=== PATIENT | male | born 1930 | race Caucasian/White ===

== ENCOUNTER 2019-02-03 17:06 | Inpatient (IN) ==
[2019-02-05] MEDS ORDERED: Nitroglycerin 0.4 MG TAB.SUBL SL PRN (14:14)
[2019-02-05] MEDS: traMADol 50 MG TABLET PO SCH ×2 (16:06→20:03)
[2019-02-05] MEDS: *HR* OxyCODONE/APAP 5/325 TABLET PO PRN (16:07)
[2019-02-05] MEDS: Mirtazapine 15 MG TABLET PO SCH (20:03)
[2019-02-05] MEDS ORDERED: NON-FORMULARY MEDICATION 1 EACH EACH (Omega-3 Acid Ethyl Esters [Lovaza] 2 GM) PO SCH (21:00)
[2019-02-06 05:46] LABS: Basophils % 0.3 %; Eosinophils # 0.7 K/mcL (0.0-0.6); Eosinophils % 7.5 %; Hematocrit 33.1 % (37.5-50.1); Hemoglobin 10.8 g/dL (12.9-16.9); Immature Granulocytes % 0.8 % (0-4); Lymphocytes # 0.6 K/mcL (0.6-4.6); Lymphocytes % 6.9 %; Mean Corpuscular HGB Conc 32.6 g/dL (31.6-35.5); Mean Corpuscular Hemoglobin 30.3 pg (28.0-33.3); Mean Platelet Volume 9.7 fL (9.4-12.4); Monocytes # 1.2 K/mcL (0.0-1.3); Monocytes % 13.1 %; Neutrophils # 6.6 K/mcL (1.6-8.9); Platelet Count 234 K/mcL (140-400); Red Blood Count 3.56 M/mcL (4.19-5.50); Red Cell Distribution Width 14.4 % (11.5-14.5); Segmented Neutrophils % 71.4 %
[2019-02-06 06:06] LABS: Alanine Aminotransferase 22 Units/L (7-52); Albumin 3.2 g/dL (3.5-5.7); Albumin/Globulin Ratio 1.4 (1.1-2.2); Alkaline Phosphatase 108 Units/L (34-104); Aspartate Amino Transferase 22 Units/L (13-39); BUN/Creatinine Ratio 18 (6-26); Bilirubin,Total 1.7 mg/dL (0.3-1.0); Blood Urea Nitrogen 19 mg/dL (8-23); Calcium 9.1 mg/dL (8.6-10.3); Carbon Dioxide 29 mEq/L (23-29); Chloride 102 mEq/L (98-107); Globulin 2.3 g/dL (2.4-3.5); Glucose 107 mg/dL (70-105); Osmolality,Calculated 291 (280-300); Potassium 3.3 mEq/L (3.5-5.1); Sodium 139 mEq/L (136-145); Total Protein 5.5 g/dL (6.4-8.9); eGFR For Non-African Americans > 60 (> 60)
[2019-02-06 06:35] LABS: Thyroid Stimulating Hormone 7.362 mcIU/mL (0.340-5.600)
[2019-02-06 08:56] LABS: % Iron Saturation 18 % (20-55); Iron 47 mcg/dL (65-175); Transferrin 184 mg/dL (203-362)
[2019-02-06] MEDS ORDERED: NON-FORMULARY MEDICATION 1 EACH EACH (Vit C/E/Zn/Coppr/Lutein/Zeaxan [Preservision Areds 2 PO SCH (09:00)
[2019-02-06] MEDS ORDERED: Lisinopril 20 MG TABLET PO SCH (09:00)
[2019-02-06] MEDS: Cholecalciferol (D-3) 1,000 UNIT TABLET PO SCH (09:10)
[2019-02-06] MEDS: Multivit/Ca/Min/Fe/FA 1 TAB TABLET PO SCH (09:11)
[2019-02-06] MEDS: Isosorbide MONOnitrate (24 HR) 30 MG TAB.ER.24H PO SCH (09:11)
[2019-02-06] MEDS: Aspirin 81 MG TAB.CHEW PO SCH (09:11)
[2019-02-06] MEDS: traMADol 50 MG TABLET PO SCH ×3 (09:12→21:00)
[2019-02-06 09:13] LABS: Ferritin 263 ng/mL (20-250)
[2019-02-06 09:29] LABS: Folate > 22.3 ng/mL (3.0-16.0); Vitamin B12 996 pg/mL (250-1100)
[2019-02-06] MEDS: *HR* OxyCODONE/APAP 5/325 TABLET PO PRN ×2 (12:33→21:08)
--- NOTE | 2019-02-06 12:57 | Internal Med History&Physical ---
Date of Encounter: 02/06/19 Time of Encounter: 12:30 Assessment and Plan (1) S/P laparoscopic cholecystectomy Current visit: No Status: Acute Follow up with surgeon 02/17/2019. (2) Hypokalemia Current visit: Yes Status: Acute Potassium level 3.3 today. Supplemental potassium will be ordered. (3) Hypertension Current visit: No Status: Chronic Continue Coreg and Prinzide Qualifiers: Hypertension type: essential hypertension Qualified Code(s): I10 - Essent ial (primary) hypertension (4) Postoperative anemia due to acute blood loss Current visit: No Status: Acute Anemia testing showed iron 47, transferrin saturation 18%, transferrin 184, ferritin 263, B12 996, and folate> 22.3. Ferrous sulfate with ascorbic acid will be started in a.m. (5) Elevated TSH Current visit: Yes Status: Acute TSH elevated at 7.362 today. Start low-dose Synthroid. Internal Medicine - H&P: HPI Chief complaint: Abdominal pain Admitted From: Direct Admit Plans for Post Hospital Care: Home History of present illness: Mr. Quesada is a 88 year old male who was hospitalized at [facility] January 28 after presenting with abdominal pain. He was found to have choledocholithiasis with cholangitis and pneumonia. He had ERCP with stent for stone removal which was followed by laparoscopic cholecystectomy. He completed a course of antibiotics. He wished to be discharged home rather than swing bed/SNF placement. Upon returning home he had 2 episodes of falling and felt very weak. He was directly admitted to [facility] swing bed for ongoing care needs. GI history is negative for other known disorders of liver or exocrine pancreas. He states he still has some abdominal discomfort. Past Med Surg Social Fam HX - Past Medical History Medical history: arthritis, coronary artery disease, hypertension Additional medical history: VERY [place], Psychiatric history: depression - Past Surgical History Surgical History: vascular surgery Additional surgical history: AAA(2008). spastic bowel. stent placement. choledocholithiasis - Social History Smoking Status: Former smoker Smokeless Tobacco Status: No Alcohol use: none Drug use: none - Family History Mother Living Status: Father Living Status: Internal Medicine - H&P: Meds Lovastatin 40 mg PO DAILY 12/23/16 [History] Mirtazapine [Remeron] 15 mg PO HS 12/23/16 [History] Multivits,Ca,Min/Iron/FA/Lycop [Centrum Men's Tablet] 1 tab PO DAILY 12/23/16 [History] Aspirin 81 mg PO DAILY #30 05/24/17 [Rx] Omeprazole [PriLOSEC] 20 mg PO BID 07/15/17 [History] Isosorbide MONOnitrate (24 HR) [Imdur] 30 mg PO DAILY 12/17/17 [History] Nitroglycerin 0.4 mg SL Q5MIN 12/17/17 [History] Carvedilol 6.25 mg PO BID 02/21/18 [History] Cholecalciferol (D-3) [Vitamin D] 2,000 unit PO DAILY 02/21/18 [History] Albuterol Sulfate [Albuterol Inhaler] 2 puff IH Q4H PRN 01/28/19 [History] [place]-3 Acid Ethyl Esters [Lovaza] 2 gm PO BID 01/28/19 [History] Tramadol HCl [Ultram] 50 mg PO TID 01/28/19 [History] Vit C/E/Zn/Coppr/Lutein/Zeaxan [Preservision Areds 2 Softgel] 2 cap PO DAILY 01/28/19 [History] Lisinopril-HCTZ 20-12.5 [Prinzide 20-12.5] 2 tab PO DAILY 01/29/19 [History] OxyCODONE/APAP 5/325 [Percocet 5/325 MG] 1 each PO Q6HR PRN 7 Days #28 tablet 02/04/19 [Rx] Allergy/AdvReac Type Severity Reaction Status Date / Time No Known Allergies Allergy Verified 02/03/19 19:37 All Systems PM: A 10-system review of systems was performed and is negative for pertinent findings except as documented above in the HPI. Review of systems: Gen.: His weight has increased from 77.111 kg in April 2015 to present weight of 81.647 kg Cardiovascular: He has history of hypertension but no OR heart failure angina DVT or pulmonary embolus. He had abdominal aortic aneurysm with endograft repair 2004. Respiratory: He smoked from age [age] never exceeding 1 pack per day. He reports PFTs many years ago were unremarkable. He does not use home oxygen and has not been tested for sleep apnea GI: As per history of present illness : He had a kidney stone remotely. He has chronic kidney disease stage II but does not follow with a safety teacher. He was diagnosed with a benign kidney tumor several years ago which has remained stable. He denies other kidney bladder prostate disorders Neurologic: He denies large distribution strokes or seizures Endocrine: He has hyperlipidemia but no known diabetes or thyroid disease Hematology/oncology: He denies blood disorders or cancers. He had thrombocytopenia during his [facility] stay which resolved by time of discharge. He was unaware he had anemia. Psychiatric: He denies anxiety depression or other mental health issues [place] skeletal: He denies arthritis gout or other bone joint or muscle disorders. - Constitutional Vitals: Temp Pulse Resp BP Pulse Ox 97.7 F 84 18 163/94 90 02/06/19 07:07 02/06/19 07:07 02/06/19 07:07 02/06/19 07:07 02/06/19 07:07 Exam: Gen.: He is a well-developed well-nourished male lying in bed who appears in minimal distress at rest HEENT: Head is atraumatic and normocephalic. Eyes: EOMI. There is no scleral icterus. Mouth: Mucosa is moist. Neck: Supple and nontender. There is no thyromegaly or adenopathy noted. Heart: Regular without murmurs gallops or ectopics Lungs: No wheezes or crackles are heard. Abdomen: He has bandages covering surgical incision sites in his anterior mid abdomen and right upper quadrant area. There is a large area of ecchymosis in his anterolateral lower abdominal area. There is slight tenderness to palpation. Extremities: There is no cyanosis or clubbing noted. He has trace to 1+ edema of the dorsum of the feet and lower legs bilaterally. Neurologic: Mental status: He is talkative and a good historian. Cranial nerves: Smile is symmetric. Forehead wrinkles bilaterally. Tongue protrudes midline. EOMI. He is hard of hearing. Motor: There is no pronator drift. Cerebellar: Finger to nose is intact bilaterally. Skin: Warm and dry Internal Med - H&P Results - Labs CBC & Chem 7: 02/06/19 05:38 02/06/19 05:38 Labs: Short CBC 02/06/19 Range/Units 05:38 WBC 9.3 (4.3-11.1) K/mcL Hgb 10.8 L (12.9-16.9) g/dL Hct 33.1 L (37.5-50.1) % Plt Count 234 (140-400) K/mcL Neutrophils # 6.6 (1.6-8.9) K/mcL BMP 02/06/19 05:38 Sodium 139 Potassium 3.3 L Chloride 102 Carbon Dioxide 29 BUN 19 Creatinine 1.06 Glucose 107 H Calcium 9.1 Liver Function 02/06/19 Range/Units 05:38 Total Bilirubin 1.7 H (0.3-1.0) mg/dL AST 22 (13-39) Units/L ALT 22 (7-52) Units/L Alkaline Phosphatase 108 H (34-104) Units/L Albumin 3.2 L (3.5-5.7) g/dL
[2019-02-06] MEDS: Mirtazapine 15 MG TABLET PO SCH (20:55)
[2019-02-07] MEDS: Ascorbic Acid 500 MG TABLET PO SCH ×2 (06:35→10:07)
[2019-02-07] MEDS: traMADol 50 MG TABLET PO SCH ×3 (09:05→20:15)
[2019-02-07] MEDS: Multivit/Ca/Min/Fe/FA 1 TAB TABLET PO SCH ×2 (10:01→10:09)
[2019-02-07] MEDS: Isosorbide MONOnitrate (24 HR) 30 MG TAB.ER.24H PO SCH (10:01)
[2019-02-07] MEDS: Cholecalciferol (D-3) 1,000 UNIT TABLET PO SCH (10:02)
[2019-02-07] MEDS: Aspirin 81 MG TAB.CHEW PO SCH (10:02)
--- NOTE | 2019-02-07 14:34 | Internal Med Progress Note ---
Date of Encounter: 02/07/19 Time of Encounter: 14:25 - Assessment and plan (1) S/P laparoscopic cholecystectomy Current Visit: No Status: Acute Assessment and plan: February 07. Follow-up with surgeon 02/17/2019. (2) Hypokalemia Current Visit: Yes Status: Acute Assessment and plan: February 17. Continue supplemental potassium. Recheck labs in a.m. (3) Hypertension Current Visit: No Status: Chronic Assessment and plan: February 07. Continue Coreg and Prinzide. Qualifiers: Hypertension type: essential hypertension Qualified Code(s): I10 - Essential (primary) hypertension (4) Postoperative anemia due to acute blood loss Current Visit: No Status: Acute Assessment and plan: February 07. Anemia testing 02/06/2019 showed iron 47, transferrin saturation 18%, transferrin 184, ferritin 263, B12 996, and folate> 22.3. Continue ferrous sulfate with ascorbic acid. (5) Elevated TSH Current Visit: Yes Status: Acute Assessment and plan: February 07. TSH slightly elevated at 7.362 on 02/06/2019. Continue Synthroid. - Subjective Interval history: February 07. He has no new complaints and feels better. - Constitutional Vitals: Temp Pulse Resp BP Pulse Ox 98.5 F 64 16 144/71 96 02/07/19 06:56 02/07/19 06:56 02/07/19 06:56 02/07/19 06:56 02/07/19 06:56 Exam: He is resting comfortably in bed and appears in no acute distress. His affect is bright and cheerful. Abdomen is soft and nontender. Extremities show no edema. I reviewed his medications and lab results. Internal Medicine: Result - Labs CBC & Chem 7: 02/06/19 05:38 02/06/19 05:38 Consult Discharge Plan - Plan Referrals: NONE,PCP [Primary Care Provider] - 1 week
[2019-02-07] MEDS: *HR* OxyCODONE/APAP 5/325 TABLET PO PRN ×2 (17:15→23:27)
[2019-02-07] MEDS: Mirtazapine 15 MG TABLET PO SCH (20:14)
[2019-02-08 07:00] LABS: Basophils # 0.1 K/mcL (0.0-0.2); Basophils % 0.7 %; Eosinophils # 0.4 K/mcL (0.0-0.6); Eosinophils % 5.6 %; Hematocrit 34.7 % (37.5-50.1); Immature Granulocytes % 0.7 % (0-4); Lymphocytes # 0.7 K/mcL (0.6-4.6); Lymphocytes % 9.5 %; Mean Corpuscular HGB Conc 31.7 g/dL (31.6-35.5); Mean Corpuscular Hemoglobin 30.2 pg (28.0-33.3); Mean Corpuscular Volume 95.3 fL (83.0-100.0); Mean Platelet Volume 9.9 fL (9.4-12.4); Monocytes # 1.1 K/mcL (0.0-1.3); Monocytes % 14.9 %; Neutrophils # 5.3 K/mcL (1.6-8.9); Platelet Count 264 K/mcL (140-400); Red Blood Count 3.64 M/mcL (4.19-5.50); Red Cell Distribution Width 14.1 % (11.5-14.5); Segmented Neutrophils % 68.6 %
[2019-02-08 07:23] LABS: Alanine Aminotransferase 21 Units/L (7-52); Albumin 3.4 g/dL (3.5-5.7); Albumin/Globulin Ratio 1.4 (1.1-2.2); Alkaline Phosphatase 109 Units/L (34-104); Aspartate Amino Transferase 22 Units/L (13-39); BUN/Creatinine Ratio 18 (6-26); Bilirubin,Total 1.8 mg/dL (0.3-1.0); Blood Urea Nitrogen 19 mg/dL (8-23); Calcium 9.3 mg/dL (8.6-10.3); Carbon Dioxide 34 mEq/L (23-29); Chloride 100 mEq/L (98-107); Globulin 2.4 g/dL (2.4-3.5); Glucose 104 mg/dL (70-105); Osmolality,Calculated 293 (280-300); Potassium 3.5 mEq/L (3.5-5.1); Sodium 140 mEq/L (136-145); Total Protein 5.8 g/dL (6.4-8.9); eGFR For Non-African Americans > 60 (> 60)
[2019-02-08] MEDS: *HR* OxyCODONE/APAP 5/325 TABLET PO PRN ×2 (07:57→18:11)
[2019-02-08] MEDS: Aspirin 81 MG TAB.CHEW PO SCH (10:10)
[2019-02-08] MEDS: Isosorbide MONOnitrate (24 HR) 30 MG TAB.ER.24H PO SCH (10:10)
[2019-02-08] MEDS: Cholecalciferol (D-3) 1,000 UNIT TABLET PO SCH (10:10)
[2019-02-08] MEDS: traMADol 50 MG TABLET PO SCH ×3 (10:11→21:19)
[2019-02-08] MEDS: Ascorbic Acid 500 MG TABLET PO SCH (12:10)
[2019-02-08] MEDS: Multivit/Ca/Min/Fe/FA 1 TAB TABLET PO SCH (12:10)
[2019-02-08] MEDS: MOM Conc 10 ML UD.LIQ PO SCH (16:27)
[2019-02-08] MEDS: Mirtazapine 15 MG TABLET PO SCH (21:19)
[2019-02-09] MEDS: *HR* OxyCODONE/APAP 5/325 TABLET PO PRN (06:24)
[2019-02-09] MEDS: Multivit/Ca/Min/Fe/FA 1 TAB TABLET PO SCH (07:52)
[2019-02-09] MEDS: traMADol 50 MG TABLET PO SCH ×3 (07:54→21:42)
[2019-02-09] MEDS: Cholecalciferol (D-3) 1,000 UNIT TABLET PO SCH (07:55)
[2019-02-09] MEDS: Aspirin 81 MG TAB.CHEW PO SCH (07:55)
[2019-02-09] MEDS: Ascorbic Acid 500 MG TABLET PO SCH (07:55)
[2019-02-09] MEDS: Isosorbide MONOnitrate (24 HR) 30 MG TAB.ER.24H PO SCH (07:55)
--- NOTE | 2019-02-09 10:53 | Internal Med Progress Note ---
Date of Encounter: 02/09/19 Time of Encounter: 10:25 - Assessment and plan (1) S/P laparoscopic cholecystectomy Current Visit: No Status: Acute Assessment and plan: February 07. Follow-up with surgeon 02/17/2019. (2) Hypokalemia Current Visit: Yes Status: Acute Assessment and plan: February 07. Continue supplemental potassium. Recheck labs in a.m. February 09. Potassium normalized to 3.5 yesterday. Continue potassium supplementation and monitor labs. (3) Hypertension Current Visit: No Status: Chronic Assessment and plan: February 07. Continue Coreg and Prinzide. Qualifiers: Hypertension type: essential hypertension Qualified Code(s): I10 - Essential (primary) hypertension (4) Postoperative anemia due to acute blood loss Current Visit: No Status: Acute Assessment and plan: February 07. Anemia testing 02/06/2019 showed iron 47, transferrin saturation 18%, transferrin 184, ferritin 263, B12 996, and folate> 22.3. Continue ferrous sulfate with ascorbic acid. February 09. Hemoglobin stable at 11.0. Continue to monitor periodically. (5) Elevated TSH Current Visit: Yes Status: Acute Assessment and plan: February 07. TSH slightly elevated at 7.362 on 02/06/2019. Continue Synthroid. - Subjective Interval history: February 07. He has no new complaints and feels better. February 09. He has no new complaints and feels better. His abdominal pain has lessened. - Constitutional Vitals: Temp Pulse Resp BP Pulse Ox 98.4 F 69 16 97/58 96 02/09/19 08:15 02/09/19 08:15 02/09/19 08:15 02/09/19 08:15 02/09/19 08:15 Exam: He is resting comfortably in bed and appears in no acute distress. His abdomen is soft and nontender. Extremities show no edema. I reviewed his medications and lab results. Internal Medicine: Result - Labs CBC & Chem 7: 02/08/19 06:35 02/08/19 06:35 Consult Discharge Plan - Plan Referrals: NONE,PCP [Primary Care Provider] - 1 week
[2019-02-09] MEDS: Mirtazapine 15 MG TABLET PO SCH (21:42)
[2019-02-10] MEDS: Aspirin 81 MG TAB.CHEW PO SCH (07:54)
[2019-02-10] MEDS: Multivit/Ca/Min/Fe/FA 1 TAB TABLET PO SCH (07:54)
[2019-02-10] MEDS: Cholecalciferol (D-3) 1,000 UNIT TABLET PO SCH (07:54)
[2019-02-10] MEDS: Isosorbide MONOnitrate (24 HR) 30 MG TAB.ER.24H PO SCH (07:55)
[2019-02-10] MEDS: traMADol 50 MG TABLET PO SCH ×3 (07:55→19:55)
[2019-02-10] MEDS: Ascorbic Acid 500 MG TABLET PO SCH (07:55)
[2019-02-10] MEDS: MOM Conc 10 ML UD.LIQ PO SCH (15:54)
[2019-02-10] MEDS: Mirtazapine 15 MG TABLET PO SCH (19:56)
[2019-02-11] MEDS: Isosorbide MONOnitrate (24 HR) 30 MG TAB.ER.24H PO SCH (08:26)
[2019-02-11] MEDS: Ascorbic Acid 500 MG TABLET PO SCH (08:26)
[2019-02-11] MEDS: Multivit/Ca/Min/Fe/FA 1 TAB TABLET PO SCH (08:26)
[2019-02-11] MEDS: traMADol 50 MG TABLET PO SCH ×3 (08:27→20:05)
[2019-02-11] MEDS: Cholecalciferol (D-3) 1,000 UNIT TABLET PO SCH (08:28)
[2019-02-11] MEDS: Aspirin 81 MG TAB.CHEW PO SCH (08:28)
[2019-02-11] MEDS: *HR* OxyCODONE/APAP 5/325 TABLET PO PRN (08:33)
--- NOTE | 2019-02-11 15:14 | Internal Med Progress Note ---
Date of Encounter: 02/11/19 Time of Encounter: 15:07 - Assessment and plan (1) S/P laparoscopic cholecystectomy Current Visit: No Status: Acute Assessment and plan: February 07. Follow-up with surgeon 02/17/2019. (2) Hypokalemia Current Visit: Yes Status: Acute Assessment and plan: February 07. Continue supplemental potassium. Recheck labs in a.m. February 09. Potassium normalized to 3.5 yesterday. Continue potassium supplementation and monitor labs. (3) Hypertension Current Visit: No Status: Chronic Assessment and plan: February 07. Continue Coreg and Prinzide. Qualifiers: Hypertension type: essential hypertension Qualified Code(s): I10 - Essential (primary) hypertension (4) Postoperative anemia due to acute blood loss Current Visit: No Status: Acute Assessment and plan: February 07. Anemia testing 02/06/2019 showed iron 47, transferrin saturation 18%, transferrin 184, ferritin 263, B12 996, and folate> 22.3. Continue ferrous sulfate with ascorbic acid. February 09. Hemoglobin stable at 11.0. Continue to monitor periodically. (5) Elevated TSH Current Visit: Yes Status: Acute Assessment and plan: February 07. TSH slightly elevated at 7.362 on 02/06/2019. Continue Synthroid. - Subjective Interval history: February 07. He has no new complaints and feels better. February 09. He has no new complaints and feels better. His abdominal pain has lessened. February 11. He has no new complaints. He reports his abdomen feels distended occasionally. He has adequate bowel movements. He does not feel depressed. - Constitutional Vitals: Temp Pulse Resp BP Pulse Ox 98.2 F 61 18 138/59 95 02/11/19 06:09 02/11/19 06:09 02/11/19 06:09 02/11/19 06:09 02/11/19 08:41 Exam: He is resting comfortably in bed and appears in no acute distress. His affect is overall cheerful. Extremities show no edema. Ecchymosis is gradually resolving in his abdomen/flank area. I reviewed his medications and lab results. Internal Medicine: Result - Labs CBC & Chem 7: 02/08/19 06:35 02/08/19 06:35 Consult Discharge Plan - Plan Referrals: NONE,PCP [Primary Care Provider] - 1 week
[2019-02-11] MEDS: Mirtazapine 15 MG TABLET PO SCH (20:05)
[2019-02-12] MEDS: Isosorbide MONOnitrate (24 HR) 30 MG TAB.ER.24H PO SCH (09:17)
[2019-02-12] MEDS: Cholecalciferol (D-3) 1,000 UNIT TABLET PO SCH (09:17)
[2019-02-12] MEDS: Aspirin 81 MG TAB.CHEW PO SCH (09:17)
[2019-02-12] MEDS: Ascorbic Acid 500 MG TABLET PO SCH (09:18)
[2019-02-12] MEDS: Multivit/Ca/Min/Fe/FA 1 TAB TABLET PO SCH (09:18)
[2019-02-12] MEDS: traMADol 50 MG TABLET PO SCH ×3 (09:18→20:14)
[2019-02-12] MEDS: MOM Conc 10 ML UD.LIQ PO SCH (15:12)
[2019-02-12] MEDS: *HR* OxyCODONE/APAP 5/325 TABLET PO PRN (15:12)
[2019-02-12] MEDS: Mirtazapine 15 MG TABLET PO SCH (20:14)
--- NOTE | 2019-02-13 09:55 | Internal Med Progress Note ---
Date of Encounter: 02/13/19 Time of Encounter: 09:45 - Assessment and plan (1) S/P laparoscopic cholecystectomy Current Visit: No Status: Acute Assessment and plan: February 07. Follow-up with surgeon 02/17/2019. (2) Hypokalemia Current Visit: Yes Status: Acute Assessment and plan: February 07. Continue supplemental potassium. Recheck labs in a.m. February 09. Potassium normalized to 3.5 yesterday. Continue potassium supplementation and monitor labs. February 13. Recheck labs in a.m. (3) Hypertension Current Visit: No Status: Chronic Assessment and plan: February 07. Continue Coreg and Prinzide. Qualifiers: Hypertension type: essential hypertension Qualified Code(s): I10 - Esse ntial (primary) hypertension (4) Postoperative anemia due to acute blood loss Current Visit: No Status: Acute Assessment and plan: February 07. Anemia testing 02/06/2019 showed iron 47, transferrin saturation 18%, transferrin 184, ferritin 263, B12 996, and folate> 22.3. Continue ferrous sulfate with ascorbic acid. February 09. Hemoglobin stable at 11.0. Continue to monitor periodically. (5) Elevated TSH Current Visit: Yes Status: Acute Assessment and plan: February 07. TSH slightly elevated at 7.362 on 02/06/2019. Continue Synthroid. - Subjective Interval history: February 07. He has no new complaints and feels better. February 09. He has no new complaints and feels better. His abdominal pain has lessened. February 11. He has no new complaints. He reports his abdomen feels distended occasionally. He has adequate bowel movements. He does not feel depressed. February 13. He has no new complaints. - Constitutional Vitals: Temp Pulse Resp BP Pulse Ox 98.0 F 63 16 131/64 93 02/13/19 06:01 02/13/19 06:01 02/13/19 06:01 02/13/19 06:01 02/13/19 08:45 Exam: He is resting comfortably on the side of bed and appears in no acute distress. His affect is cheerful. His flank ecchymosis shows expected evolutionary progression. I reviewed his medications and lab results. Internal Medicine: Result - Labs CBC & Chem 7: 02/08/19 06:35 02/08/19 06:35 Consult Discharge Plan - Plan Referrals: NONE,PCP [Primary Care Provider] - 1 week
[2019-02-13] MEDS: Cholecalciferol (D-3) 1,000 UNIT TABLET PO SCH (10:23)
[2019-02-13] MEDS: Multivit/Ca/Min/Fe/FA 1 TAB TABLET PO SCH (10:23)
[2019-02-13] MEDS: Isosorbide MONOnitrate (24 HR) 30 MG TAB.ER.24H PO SCH (10:23)
[2019-02-13] MEDS: Aspirin 81 MG TAB.CHEW PO SCH (10:24)
[2019-02-13] MEDS: Ascorbic Acid 500 MG TABLET PO SCH (10:24)
[2019-02-13] MEDS: traMADol 50 MG TABLET PO SCH ×3 (10:24→21:54)
[2019-02-13] MEDS: *HR* OxyCODONE/APAP 5/325 TABLET PO PRN (20:09)
[2019-02-13] MEDS: Mirtazapine 15 MG TABLET PO SCH (20:10)
[2019-02-14] MEDS: Isosorbide MONOnitrate (24 HR) 30 MG TAB.ER.24H PO SCH (07:47)
[2019-02-14] MEDS: traMADol 50 MG TABLET PO SCH ×3 (07:47→21:33)
[2019-02-14] MEDS: Aspirin 81 MG TAB.CHEW PO SCH (07:47)
[2019-02-14] MEDS: Multivit/Ca/Min/Fe/FA 1 TAB TABLET PO SCH (09:00)
[2019-02-14] MEDS: Cholecalciferol (D-3) 1,000 UNIT TABLET PO SCH (09:00)
[2019-02-14] MEDS: *HR* OxyCODONE/APAP 5/325 TABLET PO PRN (09:00)
[2019-02-14] MEDS: Ascorbic Acid 500 MG TABLET PO SCH (09:00)
[2019-02-14] MEDS: MOM Conc 10 ML UD.LIQ PO SCH (15:20)
[2019-02-14] MEDS: Mirtazapine 15 MG TABLET PO SCH (21:33)
[2019-02-15] MEDS: Cholecalciferol (D-3) 1,000 UNIT TABLET PO SCH (08:12)
[2019-02-15] MEDS: Isosorbide MONOnitrate (24 HR) 30 MG TAB.ER.24H PO SCH (08:13)
[2019-02-15] MEDS: Ascorbic Acid 500 MG TABLET PO SCH (08:13)
[2019-02-15] MEDS: traMADol 50 MG TABLET PO SCH ×3 (08:13→20:31)
[2019-02-15] MEDS: Multivit/Ca/Min/Fe/FA 1 TAB TABLET PO SCH (08:13)
[2019-02-15] MEDS: Aspirin 81 MG TAB.CHEW PO SCH (08:13)
[2019-02-15] MEDS: *HR* OxyCODONE/APAP 5/325 TABLET PO PRN (16:05)
[2019-02-15] MEDS: Mirtazapine 15 MG TABLET PO SCH (20:31)
[2019-02-16 07:14] LABS: Hematocrit 40.6 % (37.5-50.1); Hemoglobin 12.9 g/dL (12.9-16.9); Mean Corpuscular HGB Conc 31.8 g/dL (31.6-35.5); Mean Corpuscular Hemoglobin 30.6 pg (28.0-33.3); Mean Corpuscular Volume 96.2 fL (83.0-100.0); Mean Platelet Volume 9.6 fL (9.4-12.4); Platelet Count 327 K/mcL (140-400); Red Blood Count 4.22 M/mcL (4.19-5.50); Red Cell Distribution Width 14.1 % (11.5-14.5)
[2019-02-16 08:17] LABS: Calcium 10.1 mg/dL (8.6-10.3); Potassium 4.5 mEq/L (3.5-5.1)
[2019-02-16 09:16] LABS: Basophils # 0.3 K/mcL (0.0-0.2); Monocytes # 0.7 K/mcL (0.0-1.3); Neutrophils # 3.9 K/mcL (1.6-8.9); Platelet Estimate Normal (Normal); Reactive Lymphocytes Present (Not Present)
[2019-02-16] MEDS: Isosorbide MONOnitrate (24 HR) 30 MG TAB.ER.24H PO SCH (09:39)
[2019-02-16] MEDS: traMADol 50 MG TABLET PO SCH ×3 (09:39→19:56)
[2019-02-16] MEDS: Ascorbic Acid 500 MG TABLET PO SCH (09:40)
[2019-02-16] MEDS: Multivit/Ca/Min/Fe/FA 1 TAB TABLET PO SCH (09:40)
[2019-02-16] MEDS: Aspirin 81 MG TAB.CHEW PO SCH (09:40)
[2019-02-16] MEDS: Cholecalciferol (D-3) 1,000 UNIT TABLET PO SCH (09:40)
--- NOTE | 2019-02-16 15:03 | Internal Med Progress Note ---
Date of Encounter: 02/16/19 Time of Encounter: 14:55 - Assessment and plan (1) S/P laparoscopic cholecystectomy Current Visit: No Status: Acute Assessment and plan: February 07. Follow-up with surgeon 02/17/2019. (2) Hypokalemia Current Visit: Yes Status: Acute Assessment and plan: February 07. Continue supplemental potassium. Recheck labs in a.m. February 09. Potassium normalized to 3.5 yesterday. Continue potassium supplementation and monitor labs. February 13. Recheck labs in a.m. February 16. Potassium normal at 4.5. Discontinue supplemental potassium. (3) Hypertension Current Visit: No Status: Chronic Assessment and plan: February 07. Continue Coreg and Prinzide. February 16. Continue Coreg. Discontinue Prinzide due to azotemia. Qualifiers: Hypertension type: essential hypertension Qualified Code(s): I10 - Essential (primary) hypertension (4) Postoperative anemia due to acute blood loss Current Visit: No Status: Acute Assessment and plan: February 07. Anemia testing 02/06/2019 showed iron 47, transferrin saturation 18%, transferrin 184, ferritin 263, B12 996, and folate> 22.3. Continue ferrous sulfate with ascorbic acid. February 09. Hemoglobin stable at 11.0. Continue to monitor periodically. February 16. Hemoglobin 12.9. Suspect rise partly due to hemoconcentration. Discontinue Prinzide and continue to monitor. (5) Elevated TSH Current Visit: Yes Status: Acute Assessment and plan: February 07. TSH slightly elevated at 7.362 on 02/06/2019. Continue Synthroid. - Subjective Interval history: February 07. He has no new complaints and feels better. February 09. He has no new complaints and feels better. His abdominal pain has lessened. February 11. He has no new complaints. He reports his abdomen feels distended occasionally. He has adequate bowel movements. He does not feel depressed. February 13. He has no new complaints. February 16. He has no new complaints and feels better overall. - Constitutional Vitals: Temp Pulse Resp BP Pulse Ox 97.5 F L 69 18 133/78 91 02/16/19 06:28 02/16/19 06:28 02/15/19 18:29 02/16/19 06:28 02/16/19 06:28 Exam: He is resting comfortably in bed and appears in no acute distress. His affect i s bright and cheerful. Abdomen is soft and nontender. There is lessening of ecchymoses as expected. I reviewed his medications and lab results Internal Medicine: Result - Labs CBC & Chem 7: 02/16/19 06:59 02/16/19 06:59 Labs: Short CBC 02/16/19 Range/Units 06:59 WBC 6.9 (4.3-11.1) K/mcL Hgb 12.9 (12.9-16.9) g/dL Hct 40.6 (37.5-50.1) % Plt Count 327 (140-400) K/mcL Neutrophils # 3.9 (1.6-8.9) K/mcL BMP 02/16/19 06:59 Sodium 139 Potassium 4.5 Chloride 100 Carbon Dioxide 31 H BUN 31 H Creatinine 1.45 H Glucose 107 H Calcium 10.1 Consult Discharge Plan - Plan Referrals: NONE,PCP [Primary Care Provider] - 1 week
[2019-02-16] MEDS: MOM Conc 10 ML UD.LIQ PO SCH (15:35)
[2019-02-16] MEDS: Mirtazapine 15 MG TABLET PO SCH (19:56)
[2019-02-17] MEDS: traMADol 50 MG TABLET PO SCH ×3 (11:09→20:10)
[2019-02-17] MEDS: Isosorbide MONOnitrate (24 HR) 30 MG TAB.ER.24H PO SCH (11:10)
[2019-02-17] MEDS: Ascorbic Acid 500 MG TABLET PO SCH (11:10)
[2019-02-17] MEDS: Aspirin 81 MG TAB.CHEW PO SCH (11:10)
[2019-02-17] MEDS: Cholecalciferol (D-3) 1,000 UNIT TABLET PO SCH (11:10)
[2019-02-17] MEDS: Multivit/Ca/Min/Fe/FA 1 TAB TABLET PO SCH (11:10)
[2019-02-17] MEDS: *HR* OxyCODONE/APAP 5/325 TABLET PO PRN (11:32)
[2019-02-17] MEDS: Mirtazapine 15 MG TABLET PO SCH (20:10)
[2019-02-18] MEDS: traMADol 50 MG TABLET PO SCH ×3 (09:30→20:22)
[2019-02-18] MEDS: Aspirin 81 MG TAB.CHEW PO SCH (09:30)
[2019-02-18] MEDS: Isosorbide MONOnitrate (24 HR) 30 MG TAB.ER.24H PO SCH (09:30)
--- NOTE | 2019-02-18 11:54 | Internal Med Progress Note ---
Date of Encounter: 02/18/19 Time of Encounter: 11:47 - Assessment and plan (1) S/P laparoscopic cholecystectomy Current Visit: No Status: Acute Assessment and plan: February 07. Follow-up with surgeon 02/17/2019. February 18. Anticipate discharge home 02/20/2019. (2) Hypokalemia Current Visit: Yes Status: Acute Assessment and plan: February 07. Continue supplemental potassium. Recheck labs in a.m. February 09. Potassium normalized to 3.5 yesterday. Continue potassium supplementation and monitor labs. February 13. Recheck labs in a.m. February 16. Potassium normal at 4.5. Discontinue supplemental potassium. (3) Hypertension Current Visit: No Status: Chronic Assessment and plan: February 07. Continue Coreg and Prinzide. February 16. Continue Coreg. Discontinue Prinzide due to azotemia. Qualifiers: Hypertension type: essential hypertension Qualified Code(s): I10 - Essential (primary) hypertension (4) Postoperative anemia due to acute blood loss Current Visit: No Status: Acute Assessment and plan: February 07. Anemia testing 02/06/2019 showed iron 47, transferrin saturation 18%, transferrin 184, ferritin 263, B12 996, and folate> 22.3. Continue ferrous sulfate with ascorbic acid. February 09. Hemoglobin stable at 11.0. Continue to monitor periodically. February 16. Hemoglobin 12.9. Suspect rise partly due to hemoconcentration. Discontinue Prinzide and continue to monitor. (5) Elevated TSH Current Visit: Yes Status: Acute Assessment and plan: February 07. TSH slightly elevated at 7.362 on 02/06/2019. Continue Synthroid. - Subjective Interval history: February 07. He has no new complaints and feels better. February 09. He has no new complaints and feels better. His abdominal pain has lessened. February 11. He has no new complaints. He reports his abdomen feels distended occasionally. He has adequate bowel movements. He does not feel depressed. February 13. He has no new complaints. February 16. He has no new complaints and feels better overall. February 18. He has no new complaints. He had follow-up visit with his surgeon yesterday. - Constitutional Vitals: Temp Pulse Resp BP Pulse Ox 97.5 F L 64 18 139/66 90 02/18/19 07:56 02/18/19 07:56 02/18/19 07:56 02/18/19 07:56 02/18/19 07:56 Exam: He is sitting in a chair at bedside resting comfortably. His affect is bright and cheerful. He states his abdominal discomfort is a 3/10 level. I reviewed his medications and lab results. Internal Medicine: Result - Labs CBC & Chem 7: 02/16/19 06:59 02/16/19 06:59 Consult Discharge Plan - Plan Referrals: NONE,PCP [Primary Care Provider] - 1 week
[2019-02-18] MEDS: Cholecalciferol (D-3) 1,000 UNIT TABLET PO SCH (12:28)
[2019-02-18] MEDS: Multivit/Ca/Min/Fe/FA 1 TAB TABLET PO SCH (12:28)
[2019-02-18] MEDS: Ascorbic Acid 500 MG TABLET PO SCH (12:28)
[2019-02-18] MEDS: MOM Conc 10 ML UD.LIQ PO SCH (15:52)
[2019-02-18] MEDS: Mirtazapine 15 MG TABLET PO SCH (20:22)
[2019-02-19] MEDS: traMADol 50 MG TABLET PO SCH ×3 (09:55→20:46)
[2019-02-19] MEDS: Isosorbide MONOnitrate (24 HR) 30 MG TAB.ER.24H PO SCH (09:56)
[2019-02-19] MEDS: Aspirin 81 MG TAB.CHEW PO SCH (09:56)
[2019-02-19] MEDS: Ascorbic Acid 500 MG TABLET PO SCH (12:17)
[2019-02-19] MEDS: Multivit/Ca/Min/Fe/FA 1 TAB TABLET PO SCH (12:17)
[2019-02-19] MEDS: Cholecalciferol (D-3) 1,000 UNIT TABLET PO SCH (12:17)
[2019-02-19] MEDS: *HR* OxyCODONE/APAP 5/325 TABLET PO PRN (12:22)
[2019-02-19] MEDS: Mirtazapine 15 MG TABLET PO SCH (20:45)
[2019-02-20 06:28] VITALS: BP 127/59
--- NOTE | 2019-02-20 09:33 | Discharge Summary ---
Date of Encounter: 02/20/19 Time of Encounter: 09:20 - Discharge Diagnosis (1) S/P laparoscopic cholecystectomy Priority: Primary Status: Acute (2) Hypokalemia Priority: Secondary Status: Resolved (3) Hypertension Priority: Secondary Status: Chronic Qualifiers: Hypertension type: essential hypertension Qualified Code(s): I10 - Essential (primary) hypertension (4) Postoperative anemia due to acute blood loss Priority: Secondary Status: Resolved (5) Hypothyroidism Priority: Secondary Status: Chronic Qualifiers: Hypothyroidism type: unspecified Qualified Code(s): E03.9 - Hypothyroidism, unspecified Hospital course: Mr. Quesada is a 88 year old male who was hospitalized at [facility] January 28- after presenting with abdominal pain. He was found to have choledocholithiasis with cholangitis and pneumonia. He had ERCP with stent for stone removal which was followed by laparoscopic cholecystectomy. He completed a course of antibiotics. He wished to be discharged home rather than swing bed/SNF placement. Upon returning home he had 2 episodes of falling and felt very weak. He was directly admitted to [facility] swing bed for ongoing care needs. I saw him on February 06 performed a swing bed history and physical. He had physical therapy and occupational therapy evaluations with ongoing intervention. He made satisfactory progress. He was stable for discharge home on February 20. Supplemental potassium was given and hypokalemia resolved. Anemia testing showed slight iron deficiency. He was given ferrous sulfate with ascorbic acid and hemoglobin normalized by day of discharge. TSH returned elevated 7.362. He was started on Synthroid and this will be continued at discharge. Lisinopril/HCTZ was discontinued and azotemia improved. Blood pressure remained stable on Coreg. He will continue this regimen at discharge. He will follow with his PCP within 1 week. He will follow-up with his surgeon as directed. - Time Spent with Patient Total time spent providing and/or coordinating discharge services: - Discharge Medications Prescriptions: New Levothyroxine [Synthroid] 75 mcg PO DAILY@0630 #30 tablet Continued Aspirin 81 mg PO DAILY #30 Omeprazole [PriLOSEC] 20 mg PO BID [place]-3 Acid Ethyl Esters [Lovaza] 2 gm PO BID Albuterol Sulfate [Albuterol Inhaler] 2 puff IH Q4H PRN PRN Reason: Shortness Of Breath Vit C/E/Zn/Coppr/Lutein/Zeaxan [Preservision Areds 2 Softgel] 2 cap PO DAILY Mirtazapine [Remeron] 15 mg PO HS Multivits,Ca,Min/Iron/FA/Lycop [Centrum Men's Tablet] 1 tab PO DAILY Lovastatin 40 mg PO DAILY Nitroglycerin 0.4 mg SL Q5MIN Isosorbide MONOnitrate (24 HR) [Imdur] 30 mg PO DAILY Cholecalciferol (D-3) [Vitamin D] 2,000 unit PO DAILY Carvedilol 6.25 mg PO BID Tramadol HCl [Ultram] 50 mg PO TID Discontinued Lisinopril-HCTZ 20-12.5 [Prinzide 20-12.5] 2 tab PO DAILY Home Medications: Lovastatin 40 mg PO DAILY 12/23/16 [History] Mirtazapine [Remeron] 15 mg PO HS 12/23/16 [History] Multivits,Ca,Min/Iron/FA/Lycop [Centrum Men's Tablet] 1 tab PO DAILY 12/23/16 [History] Aspirin 81 mg PO DAILY #30 05/24/17 [Rx] Omeprazole [PriLOSEC] 20 mg PO BID 07/15/17 [History] Isosorbide MONOnitrate (24 HR) [Imdur] 30 mg PO DAILY 12/17/17 [History] Nitroglycerin 0.4 mg SL Q5MIN 12/17/17 [History] Carvedilol 6.25 mg PO BID 02/21/18 [History] Cholecalciferol (D-3) [Vitamin D] 2,000 unit PO DAILY 02/21/18 [History] Albuterol Sulfate [Albuterol Inhaler] 2 puff IH Q4H PRN 01/28/19 [History] [place]-3 Acid Ethyl Esters [Lovaza] 2 gm PO BID 01/28/19 [History] Tramadol HCl [Ultram] 50 mg PO TID 01/28/19 [History] Vit C/E/Zn/Coppr/Lutein/Zeaxan [Preservision Areds 2 Softgel] 2 cap PO DAILY 01/28/19 [History] Levothyroxine [Synthroid] 75 mcg PO DAILY@0630 #30 tablet 02/20/19 [Rx] Allergies/Adverse Reactions: Allergy/AdvReac Type Severity Reaction Status Date / Time No Known Allergies Allergy Verified 02/03/19 19:37 Date of admission: 02/05/19 14:34 Primary care physician: PCP NONE Consults: 02/05/19 14:16 Consult to Spare Person [CONS] Routine Reason for SW Consult: discharge planning 02/05/19 14:25 PT [Consult to Physical Therapy] [CONS] Routine Comment: Evaluate, develop and implement POC Reason for Consult: weakness Does patient have active BEDREST order?: No Is patient medically & hemodynamically stable?: Yes 02/05/19 14:26 OT [Consult to Occupational Therapy] [CONS] Routine Comment: Evaluate, develop and implement POC Reason for Consult: weakness Does patient have active BEDREST order?: No Is patient medically & hemodynamically stable?: Yes 02/05/19 15:37 Consult to Nutrition [CONS] Routine Comment: Consulting Provider: NUTRITION Reason for Dietary Consult: MST Score - Constitutional Vitals: Temp Pulse Resp BP Pulse Ox 98.0 F 62 16 127/59 95 02/20/19 06:21 02/20/19 06:21 02/20/19 06:21 02/20/19 06:21 02/20/19 06:21 - Patient Status Disposition: Home, Self-Care - Discharge Instructions Follow Up With: NONE,PCP [Primary Care Provider] - 1 week - Diet and Activity Activity: resume usual activities as tolerated Diet: advance to your usual diet
[2019-02-20] MEDS: Aspirin 81 MG TAB.CHEW PO SCH (12:49)
[2019-02-20] MEDS: Isosorbide MONOnitrate (24 HR) 30 MG TAB.ER.24H PO SCH (12:49)
[2019-02-20] MEDS: Ascorbic Acid 500 MG TABLET PO SCH (12:50)
[2019-02-20] MEDS: Cholecalciferol (D-3) 1,000 UNIT TABLET PO SCH (12:50)
[2019-02-20] MEDS: traMADol 50 MG TABLET PO SCH (12:50)
[2019-02-20] MEDS: Multivit/Ca/Min/Fe/FA 1 TAB TABLET PO SCH (12:50)
== END 2019-02-20 13:26 | disposition home or self-care (01) | DRG 949 ==
LOC: INPPIK 02-05 14:34
PROVIDERS: ADMIT Internal Medicine; ATTEND Internal Medicine